=== PATIENT | male | born 2000 | race Caucasian/White ===

== ENCOUNTER 2024-12-11 22:39 | Emergency (ER) | payer OTHER ==
[~2024-12-11] VITALS: Ht 180.3 cm; Wt 98.0 kg
[2024-12-11 22:43] VITALS: PULSE 92; RESP 18; TEMP 97
[2024-12-11] MEDS: ONDANSETRON HCL INJ 2MG/ML 2ML 2 MG/ML VIAL IV ONE (23:10)
[2024-12-11] MEDS: FAMOTIDINE 20 MG/2 ML VIAL IV ONE (23:10)
[2024-12-11] MEDS: KETOROLAC TROMETHAMINE 30 MG/ML VIAL IV ONE (23:10)
[2024-12-11] MEDS: LACTATED RINGER'S 1,000 ML IV ONE (23:10)
[2024-12-11] MEDS ORDERED: FAMOTIDINE20 MG PO (23:30)
[2024-12-11] MEDS ORDERED: ONDANSETRON ODT4 MG PO (23:30)
[2024-12-11] MEDS ORDERED: MAALOX MAXIMUM355 ML PO (23:30)
[2024-12-12 00:05] VITALS: BP 128/69; PULSE 88; RESP 18; TEMP 98; O2SAT 99
== END 2024-12-12 00:05 | disposition home or self-care (01) ==
LOC: FSED 22:43
DX: R11.2 Nausea with vomiting, unspecified (principal); K52.9 Noninfective gastroenteritis and colitis, unspecified; R10.9 Unspecified abdominal pain; D72.829 Elevated white blood cell count, unspecified; F17.210 Nicotine dependence, cigarettes, uncomplicated
CPT/HCPCS: 80053; 85025; 96374; 96375; 99283; J1308; J1885; J2405; J7121